=== PATIENT | female | born 1995 | race Caucasian/White ===

== ENCOUNTER 2021-12-09 21:22 | Emergency (ER) | payer SELFPAY ==
[~2021-12-09] VITALS: Ht 167.6 cm; Wt 68.0 kg
[2021-12-09] MEDS ORDERED: LORAZEPAM 0.5 MG TABLET PO ONE (22:00)
[2021-12-09] MEDS ORDERED: LORAZEPAM 0.5 MG TABLET ONE (22:05)
--- NOTE | 2021-12-09 22:10 | NUR ---
BIBS FOR C/O ANXIETY WELL HIGH HEART RATE "THE WHOLE WEEKEND". PT AWAKE AND ALERT AMBULATORY WITH STEADY GAIT. PT CHANGED INTO A GOWN AND PLACED ON MONITOR AND V/S STABLE.
[2021-12-09 22:14] VITALS: BP 144/70
== END 2021-12-09 22:36 | disposition home or self-care (01) ==
LOC: ER 21:30
DX: F41.9 Anxiety disorder, unspecified (principal); F32.A Depression, unspecified; F17.200 Nicotine dependence, unspecified, uncomplicated; Z90.89 Acquired absence of other organs
CPT/HCPCS: 71045-TC